=== PATIENT | female | born 1995 | race Caucasian/White ===

== ENCOUNTER 2019-07-06 19:11 | Emergency (ER) | payer OTHER ==
[~2019-07-06] VITALS: Ht 157.5 cm; Wt 45.4 kg
[2019-07-06 19:18] VITALS: BP 141/84
--- NOTE | 2019-07-06 19:22 | NUR ---
PT INSTRUCTED TO WAIT IN LOBBY
[2019-07-06 19:59] LABS: BASOPHILS % (AUTO) 0.7 % (0.0-2.0); EOSINOPHILS # (AUTO) 0.1 K/uL (0-0.4); EOSINOPHILS % (AUTO) 1.4 % (0.0-4.0); HEMATOCRIT 40.5 % (36-48); HEMOGLOBIN 13.2 g/dL (12.0-16.0); LYMPHOCYTES # (AUTO) 1.7 K/uL (2.5-16.5); LYMPHOCYTES % (AUTO) 25.9 % (20.5-51.1); MEAN CORPUSCULAR HEMOGLOBIN 30 pg (27-31); MEAN CORPUSCULAR HGB CONC 33 g/dL (33-37); MEAN CORPUSCULAR VOLUME 91.1 fL (80-94); MONOCYTES # (AUTO) 0.4 K/uL (0.8-1.0); MONOCYTES % (AUTO) 5.7 % (1.7-9.3); NEUTROPHILS # (AUTO) 4.5 K/uL (1.8-7.7); NEUTROPHILS % (AUTO) 66.3 % (42.2-75.2); PLATELET COUNT (AUTO) 227 K/uL (140-450); RED BLOOD CELL COUNT(AUTO) 4.44 MIL/uL (4.20-5.40); RED CELL DISTRIBUTION WIDTH 14.3 % (11.6-13.7); WHITE BLOOD COUNT (AUTO) 6.7 K/uL (4.8-10.8)
--- NOTE | 2019-07-06 20:00 | NUR ---
PT AMBULATED TO BED 1 WITH STEADY GAIT
--- NOTE | 2019-07-06 20:05 | NUR ---
23 Y/O FEMALE C/O UPPER ABD PAIN X 1 MONTH THAT IS CONSTANT WITH VARRYING DEGREES OF SEVERITY, PAIN 5/10, PAIN IS DULL/ACHING/PRESSURE. PT THINKS MAY HAVE BEEN A RESULT OF CARRYING HEAVY LOAD AT WORK ONE DAY BUT UNSURE. PT DID NOT TAKE ANY OTC PAIN MEDICATION TODAY. UPPER ABD TENDER UPON PALP. DENIES N/V/D; SKIN IS PINK/WARM/DRY; AAOX4 WITH EVEN AND STEADY GAIT; PT DENIES ANY FEVER, CP, SOB, OR COUGH AT THIS TIME; VSS; PATIENT POSITIONED FOR COMFORT; HOB ELEVATED; BEDRAILS UP X1; BED DOWN AND LOCKED. MEDICAL HX: PT DENIES NKA
[2019-07-06 20:24] LABS: APPEARANCE,URINE CLEAR (CLEAR); BILIRUBIN,URINE NEGATIVE (NEGATIVE); BLOOD, URINE 3+ (NEGATIVE); COLOR,URINE YELLOW (YELLOW); LEUKOCYTE ESTERASE ,URINE NEGATIVE (NEGATIVE); NITRITE, URINE NEGATIVE (NEGATIVE); UGLUCOSE NEGATIVE (NEGATIVE)
[2019-07-06 20:26] LABS: ANION GAP 13.7 (8-16); CARBON DIOXIDE 29.1 mmol/L (21-32); CREATININE 0.8 mg/dL (0.6-1.3); POTASSIUM 3.8 mmol/L (3.5-5.1)
[2019-07-06 20:42] LABS: RBC,URINE NONE SEEN /HPF (0-5); WBC,URINE NONE SEEN /HPF (0-5)
--- NOTE | 2019-07-06 21:24 | NUR ---
PT SITTING IN CHAIR WAITING FOR RESULTS, PT CALM AND COOPERATIVE. VSS. WILL CONTINUE TO MONITOR.
--- NOTE | 2019-07-06 21:35 | NUR ---
PT TAKEN TO XRAY VIA WHEELCHAIR
--- NOTE | 2019-07-06 21:44 | NUR ---
PT BACK FROM XRAY
[2019-07-06 22:09] VITALS: BP 114/69
--- NOTE | 2019-07-06 22:10 | NUR ---
Patient discharged with v/s stable. Written and verbal after care instructions given and explained. Patient alert, oriented and verbalized understanding of instructions. Ambulatory with steady gait. All questions addressed prior to discharge. ID band removed. Patient advised to follow up with PMD. Rx of MINERAL OIL given. Patient educated on indication of medication including possible reaction and side effects. Opportunity to ask questions provided and answered.
== END 2019-07-06 22:10 | disposition home or self-care (01) ==
LOC: MED 19:11
DX: R10.84 Generalized abdominal pain (principal)
CPT/HCPCS: 36415; 74018; 80048; 81001; 81025; 84702; 85025; 86900; 86901; 99284

== ENCOUNTER 2019-12-23 00:55 | Emergency (ER) | payer OTHER ==
[~2019-12-23] VITALS: Ht 157.5 cm; Wt 44.5 kg
[2019-12-23 01:01] VITALS: BP 120/81
--- NOTE | 2019-12-23 01:05 | NUR ---
To ED bed 12
--- NOTE | 2019-12-23 01:29 | NUR ---
Dr. De Jesus examining patient.
--- NOTE | 2019-12-23 01:31 | NUR ---
23 Y/O FEMALE PRESENTS TO ER WITH C/O "NOT FEELING TO GOOD" X A COUPLE OF DAYS. 0/10 PAIN. PT STATES CONSTANTLY FEELING NAUSEOUS. "MY STOMACH FEELS, BLOATED AND TIGHT". DENIES VOMITING, DIARRHEA, SOB, FEVER, CHILLS, COUGH, HEADACHE, AND INJURY TO ABDOMEN, OR TTP. LMP X 3 MO AGO. VSS, R/R EQUAL, AND UNLABORED. SIDE RAIL X1, BED IN LOW POSITION, WILL CONTINUE TO MONITOR. NKDA PMH: DEPRESSION
[2019-12-23] MEDS ORDERED: PANTOPRAZOLE 40 MG INJ VIAL IVP ONE (01:35)
[2019-12-23] MEDS ORDERED: NACL 0.9% 1,000 ML IV ONE (01:35)
[2019-12-23 01:47] LABS: BASOPHILS % (AUTO) 0.5 % (0.0-2.0); EOSINOPHILS # (AUTO) 0.1 K/uL (0-0.4); EOSINOPHILS % (AUTO) 0.9 % (0.0-4.0); HEMATOCRIT 38.7 % (36-48); LYMPHOCYTES # (AUTO) 1.6 K/uL (2.5-16.5); LYMPHOCYTES % (AUTO) 27.2 % (20.5-51.1); MEAN CORPUSCULAR HEMOGLOBIN 29 pg (27-31); MEAN CORPUSCULAR HGB CONC 34 g/dL (33-37); MEAN CORPUSCULAR VOLUME 86.5 fL (80-94); MONOCYTES # (AUTO) 0.4 K/uL (0.8-1.0); MONOCYTES % (AUTO) 7.6 % (1.7-9.3); NEUTROPHILS # (AUTO) 3.8 K/uL (1.8-7.7); NEUTROPHILS % (AUTO) 63.8 % (42.2-75.2); PLATELET COUNT (AUTO) 195 K/uL (140-450); RED BLOOD CELL COUNT(AUTO) 4.47 MIL/uL (4.20-5.40); RED CELL DISTRIBUTION WIDTH 14.3 % (11.6-13.7); WHITE BLOOD COUNT (AUTO) 5.9 K/uL (4.8-10.8)
--- NOTE | 2019-12-23 01:52 | NUR ---
covering for primary RN Kriss for relief. assumed pt care. Lt AC IV initiated. tolerated procedure well.
--- NOTE | 2019-12-23 01:53 | NUR ---
pt taken to RAD via w/c
[2019-12-23 01:56] LABS: ANION GAP 11.2 (8-16); CARBON DIOXIDE 27.6 mmol/L (21-32); CREATININE 0.8 mg/dL (0.6-1.3); POTASSIUM 3.8 mmol/L (3.5-5.1)
[2019-12-23 02:01] LABS: ALBUMIN 4.2 g/dL (3.4-5.0); TOTAL BILIRUBIN 0.3 mg/dL (0.0-1.0)
--- NOTE | 2019-12-23 02:04 | NUR ---
returned to bed 12
--- NOTE | 2019-12-23 02:15 | NUR ---
ERMD AT BEDSIDE.
--- NOTE | 2019-12-23 02:38 | NUR ---
IV removed, catheter intact and site benign. Applied folded 4x4 gauze and tape to stop bleeding.
[2019-12-23 02:40] VITALS: BP 114/71
--- NOTE | 2019-12-23 02:40 | NUR ---
Patient discharged with v/s stable. Written and verbal after care instructions given and explained. Patient alert, oriented and verbalized understanding of instructions. Ambulatory with steady gait. All questions addressed prior to discharge. ID band removed. Patient advised to follow up with PMD. Rx of Protonix given. Patient educated on indication of medication including possible reaction and side effects. Opportunity to ask questions provided and answered.
== END 2019-12-23 02:40 | disposition home or self-care (01) ==
LOC: MED 00:55
DX: K21.9 Gastro-esophageal reflux disease without esophagitis (principal); F41.9 Anxiety disorder, unspecified; F32.9 Major depressive disorder, single episode, unspecified; L94.0 Localized scleroderma [morphea]
CPT/HCPCS: 36415; 74022; 80053; 81002; 81025; 85025; 96361; 96374; 99284; C9113; J7030